=== PATIENT | female | born 1960 | race Caucasian/White ===

== ENCOUNTER 2024-02-12 12:31 | Emergency (ER) | payer OTHER, SELFPAY ==
[2024-02-12 12:53] VITALS: BP 156/85
--- NOTE | 2024-02-12 12:53 | ED.PDOC.TR ---
ED Provider Triage
-
Patient seen by provider in Triage?: Seen in Triage
Patient was seen as a rapid assessment in triage. Patient is a 63-year-old female without significant chronic medical conditions presenting with right upper quadrant abdominal pain with radiation to her back that was initially intermittent over the
past few weeks but worsening over the past few days. She was seen by her primary care doctor and sent in for further assessment due to this ongoing pain. She has had some nausea no vomiting does not seem to have any specific palliation or
provocation. Here on her assessment she does have tenderness palpation to the right upper quadrant and positive De Jesus's sign. No specific pain to the back or lower abdomen. Plan for labs and ultrasound for further assessment of potential
gallbladder pathology.
[2024-02-12 13:25] LABS: % Basophils 0.8 % (0-2); % Eosinophils 1.7 % (0-6); % Immature Granulocytes 0.4 % (0-0.5); % Lymphocytes 26.8 % (20.5-51.1); % Monocytes 8.5 % (1.7-9.3); % Neutrophils 61.8 % (42.2-75.2); Absolute Eosinophils 0.1 10^3/uL (0-0.7); Absolute Lymphocytes 1.4 10^3/uL (1.2-3.4); Absolute Monocytes 0.5 10^3/uL (0.1-0.6); Absolute Neutrophils 3.3 10^3/uL (1.4-6.5); Hemoglobin 13.9 g/dL (12.0-16.0); Mean Corp Hgb Conc. 33.1 g/dL (33.0-37.0); Mean Corpuscular Hgb 29.3 pg (27.0-31.0); Mean Corpuscular Volume 88.4 fL (81.0-99.0); Nucleated Red Blood Cells % 0 %; Platelet Count 266 10^3/uL (130-400); Red Blood Cell Count 4.75 10^6/uL (4.20-5.40); Red Cell Dist. Width 12.7 % (11.5-14.5); White Blood Cell Count 5.3 10^3/uL (4.8-10.8)
[2024-02-12 13:47] LABS: ALT (SGPT) 24 U/L (0-35); AST (SGOT) 28 U/L (14-36); Albumin 4.3 g/dl (3.5-5.0); Alkaline Phosphatase 92 U/L (38-126); Blood Urea Nitrogen 11 mg/dl (7-17); Calcium 9.4 mg/dl (8.4-10.2); Carbon Dioxide 27 mmol/L (22-30); Chloride 107 mmol/L (98-107); Glucose 83 mg/dl (70-99); Lipase 62 U/L (23-300); Potassium 4.9 mmol/L (3.5-5.1); Sodium 141 mmol/L (135-145); Total Bilirubin 0.5 mg/dl (0.2-1.3); eGFR > 60.00
--- NOTE | 2024-02-12 17:23 | ED.GENMED ---
History of Present Illness
General
Chief Complaint: Abdominal Pain
Time Seen by Provider: 02/12/24 16:59
Travel History
Have you had any contact with someone who has COVID-19?: No
Do you have any symptoms of coronavirus? Fever > 100 degrees, chills, cough, shortness of breath, sore throat, loss of taste or smell, muscle aches, or headache?: No
History of Present Illness
History of Present Illness:
63-year-old female presents to the emergency department for evaluation of right upper quadrant and right mid back pain ongoing for the past several days. She notes that after adhering to a low-fat diet the pain seemed to gradually improve but
worsened again today. Denies any fevers or chills. No history of abdominal surgeries other than . No nausea or vomiting. No obvious provoking or palliating factors otherwise
Review of Systems
Review of Systems
Allergies reviewed?: Yes
All Other Systems: ROS reviewed and negative except as documented in HPI and ROS
Phy Exam
Physical Exam
Physical Exam:
GEN: Well appearing, NAD, WDWN
Eyes: PERRLA, EOMs intact, no scleral icterus
HENT: NCAT, oral mucosa moist
Lungs: CTAB, no wheezes, rales, rhonchi, normal chest wall excursion
Cardiac: RRR, no M/R/G, no peripheral edema. Radial pulses 2+ bilat
Abdomen: S, NT, ND, NABS, no masses or hepatosplenomegaly
Neuro: AO x 3
MSK: No gross deformity or ecchymosis.
Skin: No rashes, petechiae. Normal color, no pallor or jaundice.
Psych: Calm, cooperative, proper hygiene
Course
Orders/Labs/Results
Orders:
Orders
02/12/24 12:54
US Abdomen Complete/Upper Urgent
Comment:
Reason For Exam: ruq pain
02/12/24 13:02
Complete Blood Count/With Diff Urgent
Comprehensive Metabolic Panel Urgent
Lipase Urgent
02/12/24 13:02
02/12/24 13:02
Vital Signs
Initial and Last Documented VS:
Initial Vital Signs
Temp Pulse Resp BP Pulse Ox
98.7 F 75 18 156/85 97
02/12/24 12:53 02/12/24 12:53 02/12/24 12:53 02/12/24 12:53 02/12/24 12:53
Last Documented Vital Signs
Temp Pulse Resp BP Pulse Ox
98.7 F 75 18 156/85 97
02/12/24 12:53 02/12/24 12:53 02/12/24 12:53 02/12/24 12:53 02/12/24 12:53
MDM/Problems Addressed
MDM/Problems Addressed:
Exam is benign, ultrasound is revealing of gallstones but no signs of cholecystitis. Labs are reassuring. Recommend outpatient general surgical follow-up.
*Critical Care Note
Total Time (30-74mins, 75-104mins- exclusive of procedures): Not Applicable
ED Attending Note
-
Portions of this chart may have been created with voice recognition software.� Occasional wrong word or��sound alike� substitutions may have occurred due to the inherent limitations of voice recognition software.
Discharge Plan
Departure
Patient Disposition: Home (Routine Discharge)
Date of Disposition: 02/12/24
Time of Disposition: 17:23
Patient with high blood pressure during this ER visit?: No
Discharge Problem:
Biliary colic
Instructions: Gallstones (DC), Low-fat diet
Referrals:
Hans Mccloud MD [Active] -
Interventions
Interventions:
*Risk Screen - Suicide Last Done: 02/12/24 12:56
*General Assessment Last Done: 02/12/24 12:56
*Neglect/Abuse Screening Last Done: 02/12/24 12:56
*Nursing Disposition Last Done: 02/12/24 17:42
Discharge Date and Time
Discharge Date/Time: 02/12/24 17:43
Print Language: CITIZEN OF [place]
== END 2024-02-12 17:43 | disposition home or self-care (01) ==
LOC: EMR 12:31
PROVIDERS: Physician Assistant; EMERGENCY PHYSICIAN Emergency Medicine; FAMILY PHYSICIAN Family Medicine
DX: K80.70 Calculus of gallbladder and bile duct without cholecystitis without obstruction (principal)
CPT/HCPCS: 99284; 76700; 80053; 83690; 85025

== ENCOUNTER 2024-04-24 06:29 | Day surgery (SDC) | payer OTHER, SELFPAY ==
[2024-04-09 10:13] LABS: Hematocrit 43.8 % (37.0-47.0); Hemoglobin 14.7 g/dL (12.0-16.0); Mean Corp Hgb Conc. 33.6 g/dL (33.0-37.0); Mean Corpuscular Hgb 29.5 pg (27.0-31.0); Mean Platelet Volume 10.3 fL (7.4-10.4); Platelet Count 262 10^3/uL (130-400); Red Blood Cell Count 4.98 10^6/uL (4.20-5.40); Red Cell Dist. Width 12.8 % (11.5-14.5); White Blood Cell Count 5.2 10^3/uL (4.8-10.8)
[2024-04-09 10:51] VITALS: BMI 32.3
[2024-04-09 12:12] LABS: ALT (SGPT) 18 U/L (0-35); AST (SGOT) 23 U/L (14-36); Albumin 4.4 g/dl (3.5-5.0); Alkaline Phosphatase 96 U/L (38-126); Blood Urea Nitrogen 13 mg/dl (7-17); Calcium 9.4 mg/dl (8.4-10.2); Carbon Dioxide 27 mmol/L (22-30); Chloride 107 mmol/L (98-107); Estimated Creatinine Clearance 79 ml/min; Glucose 80 mg/dl (70-99); Potassium 4.8 mmol/L (3.5-5.1); Sodium 141 mmol/L (135-145); Total Bilirubin 0.4 mg/dl (0.2-1.3); Total Protein 6.7 g/dl (6.3-8.2); eGFR > 60.00
[2024-04-24] VITALS (13 sets, daily range): BP systolic 99–124; BP diastolic 50–69; BMI 32.3
[2024-04-24] MEDS: TYLENOL 1000 MG PO (08:49)
[2024-04-24] MEDS: NORMOSOL-R 1000 IV (08:50)
[2024-04-24] MEDS: TRANSDERM-SCOP 1 PATCH TRANSDERM (09:31)
[2024-04-24] MEDS: ZOFRAN 4 MG IV (11:23)
[2024-04-24] MEDS: DILAUDID 0.25 MG IV (11:35)
[2024-04-24] MEDS: COMPAZINE 5 MG IV (12:12)
== END 2024-04-24 13:42 | disposition home or self-care (01) ==
LOC: SDS 06:29
PROVIDERS: ATTENDING PHYSICIAN Surgery; FAMILY PHYSICIAN Family Medicine
DX: K80.20 Calculus of gallbladder without cholecystitis without obstruction (principal); K76.0 Fatty (change of) liver, not elsewhere classified
CPT/HCPCS: 47563; 88304; 36415; 74300; 76000; 80053; 85027; 93005

== ENCOUNTER → 2024-06-17 10:07 | Outpatient (REF) | payer OTHER, SELFPAY | LOC: HWRAD 10:07 | PROVIDERS: ATTENDING PHYSICIAN Nurse Practitioner Adult Health | DX: Z00.00 Encounter for general adult medical examination without abnormal findings (principal); N28.1 Cyst of kidney, acquired | CPT/HCPCS: 76775 ==

== ENCOUNTER → 2024-07-14 12:45 | Outpatient (REF) | payer OTHER, SELFPAY | LOC: HWRAD 12:45 | PROVIDERS: ATTENDING PHYSICIAN Nurse Practitioner Adult Health | DX: E55.9 Vitamin D deficiency, unspecified (principal); M25.512 Pain in left shoulder; M54.2 Cervicalgia | CPT/HCPCS: 72050; 73030 ==

== ENCOUNTER → 2024-09-10 13:21 | Outpatient (REF) | payer OTHER, SELFPAY | LOC: HWWDC 13:21 | PROVIDERS: ATTENDING PHYSICIAN Nurse Practitioner Adult Health | DX: Z12.31 Encounter for screening mammogram for malignant neoplasm of breast (principal) | CPT/HCPCS: 77063; 77067 ==

== ENCOUNTER → 2025-04-23 17:29 | Outpatient (REF) | payer OTHER, SELFPAY | LOC: RAD 17:29 | PROVIDERS: ATTENDING PHYSICIAN Nurse Practitioner Adult Health | DX: R43.9 Unspecified disturbances of smell and taste (principal); R42 Dizziness and giddiness; G24.5 Blepharospasm; R51.9 Headache, unspecified; R48.2 Apraxia | CPT/HCPCS: 70470; Q9967 ==

== ENCOUNTER → 2025-07-27 07:57 | Outpatient (REF) | payer OTHER, SELFPAY | LOC: RAD 07:57 | PROVIDERS: ATTENDING PHYSICIAN Nurse Practitioner Adult Health | DX: D17.71 Benign lipomatous neoplasm of kidney (principal); N28.1 Cyst of kidney, acquired; K43.9 Ventral hernia without obstruction or gangrene | CPT/HCPCS: 76705; 76775 ==